=== PATIENT | female | born 1995 | race Caucasian/White ===

== ENCOUNTER → 2022-04-10 15:21 | Outpatient (CLI) | payer OTHER, SELFPAY ==
[2022-04-10 16:57] LABS: Alanine Aminotransferase 50 IU/L (<35); Albumin 4.3 g/dL (3.5-5.0); Albumin Globulin Ratio 1.4 (1.0-2.8); Alkaline Phosphatase 62 U/L (38-126); Aspartate Aminotransferase 47 IU/L (14-36); BUN Creatinine Ratio 9.8 (6-22); Bilirubin Total 0.4 mg/dL (0.2-1.3); Blood Urea Nitrogen 6 mg/dL (7-17); Calcium 8.6 mg/dL (8.4-10.2); Carbon Dioxide 28 mmol/L (22-32); Chloride 101 mmol/L (98-107); Estimated Glomerular Filt Rate > 60 mL/min (>60); Globulin 3.1 g/dL (1.7-4.1); Glucose 95 mg/dL (70-100); HEMOLYSIS < 15 (0-50); Potassium 3.3 mmol/L (3.4-5.1); Sodium 140 mmol/L (137-145); Total Protein 7.4 g/dL (6.3-8.2)
== END ==
PROVIDERS: Referring Provider Physician Assistant; Visit Provider Physician Assistant
DX: R10.9 Unspecified abdominal pain (principal)
CPT/HCPCS: 36415; 80053

== ENCOUNTER → 2022-04-11 13:33 | Outpatient (CLI) | payer OTHER, SELFPAY | PROVIDERS: Referring Provider Family Medicine; Visit Provider Family Medicine | DX: A05.9 Bacterial foodborne intoxication, unspecified (principal) | CPT/HCPCS: 87045; 87899 ==

== ENCOUNTER → 2024-11-16 21:49 | Outpatient (ROUT) | payer BC, SELFPAY | PROVIDERS: PCP Registered Nurse Diabetes Educator; Visit Provider Dermatology | DX: R21 Rash and other nonspecific skin eruption (principal) | CPT/HCPCS: 87070; 87075; 87077; 87102; 87186; 87205 ==

== ENCOUNTER → 2025-03-08 17:15 | Outpatient (ROUT) | payer BC, SELFPAY | PROVIDERS: PCP Registered Nurse Diabetes Educator; Visit Provider Dermatology | DX: L03.90 Cellulitis, unspecified (principal); L24.9 Irritant contact dermatitis, unspecified cause; Z79.899 Other long term (current) drug therapy | CPT/HCPCS: 87070; 87075; 87102; 87205 ==